=== PATIENT | female | born 1985 | race Caucasian/White ===

== ENCOUNTER 2019-05-24 05:05 | Inpatient (IN) | payer OTHER, SELFPAY ==
[2019-05-24] VITALS (111 sets, daily range): BP systolic 89–136; BP diastolic 48–93; PULSE 60–245; RESP 16; TEMP 36.6–37.6; O2SAT 86–100; BMI 29.2
[2019-05-24] MEDS: LANOLIN (LANSINOH) 7.5 GM CREAM 1 APPLIC TOPICAL (00:10)
--- NOTE | 2019-05-24 05:31 | LDADM ---
This patient, Meg Andrade, was admitted to Labor/Delivery/Recovery 102 on 05/24/19 at 05:05. Plans for labor, pain management and were discussed with patient. Patient/family oriented to hospital policies and general routines including ID bracelet, bed and alarms, visiting hours, pain management, procedures, bathroom and other care routines, personal items, smoking policy, room service/diet and guest tray routines, infant security routines, and visiting hours. Patient/Family are encouraged to report perceived risks to care and to ask questions if they do not understand what they are told or what they should do. See OBIX for further documentation.
[2019-05-24 05:37] LABS: Basophils Absolute Auto 0.1 K/mm3 (0.0-0.1); Basophils Percent Auto 0.6 % (0.2-1.2); Eosinophils Absolute Auto 0.1 K/mm3 (0-0.3); Eosinophils Percent Auto 0.8 % (0-4.4); Hematocrit 36.3 % (37.0-47.0); Immature Granulocyte Absolute 0.23 K/mm3 (0.00-0.031); Immature Granulocyte Percent A 2.4 % (0-0.5); Mean Corpuscular HGB Conc 33.1 g/dl (32-36); Mean Corpuscular Hemoglobin 28.6 pg (26-34); Mean Corpuscular Volume 86.4 fl (80-100); Mean Platelet Volume 10.1 fl (7.4-10.4); Monocytes Absolute Auto 0.5 K/mm3 (0.1-0.6); Monocytes Percent Auto 5.7 % (2.6-8.5); Neutrophils Absolute Auto 6.6 K/mm3 (1.3-6.7); Neutrophils Percent Auto 69.5 % (45.5-73.1); Platelet Count Result 260 k/mm3 (150-375); White Blood Count 9.5 K/mm3 (4.5-10.0)
[2019-05-24] MEDS: LACTATED RINGERS 1,000 ML 125 ML IV CONT ×3 (05:49→14:50)
[2019-05-24 06:55] LABS: Rapid Plasma Reagin Non-Reactive (NonReactive)
--- NOTE | 2019-05-24 07:34 | P.HP_ITS ---
Obstetrics - Admit Note Admission Note: record reviewed. No pertinent additions to the history and/or any subsequent changes in the physical findings that are not consistent with the expected course of the were found. Additions to the history and/or subsequent changes in the physical findings follow. at 39 weeks for induction of labor. GBS negative. Cervix FT/50/- 3/posterior, unable to perform AROM at this time. Continue pitocin
[2019-05-24] MEDS: ONDANSETRON INJ 4 MG/2 ML VIAL IV PUSH (12:06)
--- NOTE | 2019-05-24 12:41 | PM.OBPNLAB ---
Pain Control Date/time seen: 05/24/19 12:41 Pain control: tolerating well Pelvic Exam Dilation (cm): 3 Effacement (%): 50 station: -2 Amniotic membrane status: Ruptured Comments: AROM performed with copious clear fluid Contractions Monitor mode: External Contraction pattern: Regular Status status: Category l Assessment and Plan Assessment: induction ongoing Plan: continuous present management
--- NOTE | 2019-05-24 18:05 | PM.OBPRVD ---
OB - Delivery Note Procedure Delivery date: 05/24/19 Procedure: events: Labor Induction Intrapartal events: None Induction method: AROM and per pitocin protocol Delivery monitor: external FHT Route of delivery: Laceration description: Periurethral - 1st Degree (bilateral) Delivery repair: vicryl (3-0, one stitch on each side) Specimen: No Estimated blood loss (mL): 225 Anesthesia type: Epidural Disposition: floor Baby Date of : 05/24/19 Time of : 17:51 Weeks of gestation at delivery: 39 gender: Male Weight (pounds): 7 Weight (ounces): 10 presentation: vertex position: Left Occiput Anterior Placenta delivery description: Spontaneous cord vessel description: 3 Vessels score one minute: 8 score five minutes: 9
[2019-05-24] MEDS: DOCUSATE SODIUM 100 MG CAPSULE PO (21:30)
[2019-05-24] MEDS: WITCH HAZEL 40 PADS 1 PAD TOPICAL (21:30)
[2019-05-24] MEDS: BENZOCAINE 20% AER SPR (*SP) 56 GM CAN 1 SPRAY TOPICAL (21:30)
--- NOTE | 2019-05-24 21:40 | OBPPTRN ---
Patient transferred to post room #284 via wheelchair. Support person present. Oriented to unit, room, information board, rooming in, admission packet and security measures. Patient verbalizes understanding. with patient.
[2019-05-25] MEDS: IBUPROFEN 600 MG TABLET PO ×4 (00:10→23:18)
[2019-05-25] MEDS: ACETAMINOPHEN 325 MG TABLET 650 MG PO ×2 (04:48→11:50)
[2019-05-25 05:22] LABS: Hematocrit 32.7 % (37.0-47.0); Hemoglobin 10.6 g/dL (12.0-15.0)
--- NOTE | 2019-05-25 07:42 | P.PNOB_ITS ---
OB - PN: Subj Subjective Date/time seen: 05/25/19 07:42 OB - PN: Obj Data Labs CBC & Chem 7: 05/25/19 04:44 Labs: Laboratory Results - last 24 hr 05/25/19 04:44 Hgb 10.6 L Hct 32.7 L OB - PN A/P Plan day: 1 Plan: routine care Time Spent With Patient Time: Total time spent is greater than 50% in coordination of care (as azalia ortiz) at patient's floor/unit and/or counseling patient: Review of Systems Review of Systems: All systems reviewed & are unremarkable except as noted in HPI and below Constitutional: Constitutional: Reports as per HPI Cardiovascular: Cardiovascular: Reports as per HPI Exam Const: General: comfortable Resp: Effort & Inspection: normal respiratory effort Psych: Appearance: grossly normal Affect: normal affect Attitude: cooperative Judgement: Good judgement present (Psych)
[2019-05-25 08:00] VITALS: BP 103/67; PULSE 74; RESP 18; TEMP 37.4; O2SAT 99
--- NOTE | 2019-05-25 08:00 | WPDANLDPN2 ---
Anes-Prog Note L&D Date/Time: 05/25/19 08:00 Comfortable throughout: labor and delivery Neuraxial method: epidural Epidural/Spinal procedure site: clean & non-tender Neuro status: Neuro function grossly intact. Cardiovascular status: normal Respiratory status: normal Airway patency: baseline Mental status: baseline Post-Op hydration status: normal Vital Signs: Last Vital Signs Temp 36.6 C 05/24/19 21:40 Pulse 89 05/24/19 21:40 Resp 16 05/24/19 21:40 BP 119/70 05/24/19 21:40 Pulse Ox 100 05/24/19 17:37 I/O: Intake & Output 05/24/19 05/25/19 05/25/19 23:59 07:59 15:59 Output Total 325 Balance -325 Post-procedural complaints: none Patient feedback: Patient satisfied with anesthetic care.
[2019-05-25] MEDS: DOCUSATE SODIUM 100 MG CAPSULE PO ×2 (08:53→16:13)
[2019-05-25] MEDS: MULTIVIT/MIN/PREN/FOL AC/IRON TABLET 1 TAB PO (08:53)
[2019-05-25] MEDS: TETANUS,DIPHTHERIA,AC PERTUSSIS ADULT 0.5 ML (ADACEL) IM (08:54)
--- NOTE | 2019-05-25 11:30 | PC.NURSE ---
Consulted with patient, Mother reports this is third child to breastfeed. Mother states is easily awoken and eager to feed. Mother denies difficulties or discomfort with feeding. Reviewed infant feeding cues, frequencies, duration of feedings, feeding elimination flow sheet, and signs of adequate intake. Reviewed positioning/alignment, holding breast, signs of a correct latch, effective nursing and suck swallow ratio. Mother reports was able to maintain latch without discomfort to mother. Nipple care reviewed. Instructed mother to call out for RN assistance if she is unable to latch infant for feeding or she has discomfort with nursing. Instructed feeding should be initiated three hours from start of last feeding or if feeding cues are noted before. Mother voiced understanding of information shared. Mother is feeding as required and waking to feed if needed. Infant is currently meeting outcomes for weight, output, jaundice and feeding frequencies. Mother states she feels confident to continue effective at home. Reviewed transition to breast milk, signs of adequate intake, and engorgement/relief. Instructed to call ICP if intake/output less than required. Reviewed regular medications mother is taking. Information provided per Tamiko. Reviewed community resources on the [facility] website and in the Mom/Baby guide. Information on outpatient services provided. Mother has no further questions at this time.
[2019-05-25] MEDS: LANOLIN (LANSINOH) 7.5 GM CREAM 1 APPLIC TOPICAL (16:13)
[2019-05-25 20:00] VITALS: BP 106/67; PULSE 83; RESP 16; TEMP 37
--- NOTE | 2019-05-26 00:14 | PC.NURSE ---
Patient was given the opportunity to view the discharge video Mother & Baby Care, The First Two Weeks and to ask questions. Patient declined viewing the video and has been given the mother/baby guide for home reference. Pt has 2 other children and declined to watch video.
[2019-05-26] MEDS: ACETAMINOPHEN 325 MG TABLET 650 MG PO (04:46)
[2019-05-26] MEDS: WITCH HAZEL 40 PADS 1 PAD TOPICAL ×2 (04:47→08:28)
[2019-05-26 08:00] VITALS: BP 106/68; PULSE 68; RESP 18; TEMP 36.6
[2019-05-26] MEDS: BENZOCAINE 20% AER SPR (*SP) 56 GM CAN 1 SPRAY TOPICAL (08:28)
[2019-05-26] MEDS: IBUPROFEN 600 MG TABLET PO (08:29)
[2019-05-26] MEDS: DOCUSATE SODIUM 100 MG CAPSULE PO (08:29)
[2019-05-26] MEDS: LANOLIN (LANSINOH) 7.5 GM CREAM 1 APPLIC TOPICAL (08:29)
[2019-05-26] MEDS: MULTIVIT/MIN/PREN/FOL AC/IRON TABLET 1 TAB PO (08:29)
--- NOTE | 2019-05-26 09:54 | PM.OBPNVD ---
OB - PN: Subj Subjective Date/time seen: 05/26/19 09:54 OB - PN: Obj Data Labs CBC & Chem 7: 05/25/19 04:44 OB - PN A/P Plan day: 2 Plan: discharge home Time Spent With Patient Time: Total time spent is greater than 50% in coordination of care (as documented) at patient's floor/unit and/or counseling patient: Review of Systems Review of Systems: All systems reviewed & are unremarkable except as noted in HPI and below Constitutional: Constitutional: Reports as per HPI Cardiovascular: Cardiovascular: Reports as per HPI Exam Const: General: comfortable Resp: Effort & Inspection: normal respiratory effort Psych: Appearance: grossly normal Affect: normal affect Attitude: cooperative Judgement: Good judgement present (Psych)
--- NOTE | 2019-05-26 09:55 | PM.OBDSVD ---
OB - DS: Summary OB Procedures : None OB Procedures Intrapartum: Spontaneous Vag Delivery OB Procedures: : None Time Spent with Patient Time attestation: Total time spent providing and/or coordinating discharge services: Exam Const: General: comfortable Resp: Effort & Inspection: normal respiratory effort Psych: Appearance: grossly normal Affect: normal affect Attitude: cooperative Thought content: Yes Normal thought content present Judgement: Good judgement present (Psych) Discharge Plan Discharge Attending physician on discharge: Gonzalo Christian Discharging Clinician: Joan Quiñones Patient Disposition: Home, Self-Care Activity: pelvic rest Diet: regular Patient Instructions: Antibiotic Form Stand Alone Forms: General Discharge Information Follow-up/Referrals: Yaritza Rowe MD [Physician] - 4 Weeks Discharge Medications: New ibuprofen 600 mg Tablet 600 mg PO Q6H PRN (Reason: Cramping) Qty: 30 RF: 0 Continued PNV [id number] fumarate-FA [] 28 mg iron- 800 mcg Tablet 1 tablet PO DAILY RF: 0 Discontinued dbnqzzachi-wkvzpxaoxehfp-bjug 50-325-40 mg tablet 1 tablet Q6-8H RF: 0 Date of admission: 05/24/19 05:05 Primary Care Provider: PHYSICIAN,BEATER AND PULPER FEEDER Admitting Provider: Yaritza Rowe Attending physician on admission: Yaritza Rowe
--- NOTE | 2019-05-26 10:15 | PC.NURSE ---
Self care and infant care discharge instructions given including follow up visit date and time. Mother verbalized understanding. No questions or concerns verbalized. Very pleasant and cooperative. Family at side.
[2019-05-28 10:18] VITALS: PULSE 78; RESP 18; TEMP 36.8
== END 2019-05-26 11:30 | disposition home or self-care (01) | DRG 560 ==
LOC: ANHLDR 05:09 → ANHOB2 21:52
PROVIDERS: Admitting Provider Obstetrics & Gynecology; Visit Provider Obstetrics & Gynecology
DX: O71.82 Other specified trauma to perineum and vulva (principal); O70.0 First degree perineal laceration during delivery; Z3A.39 39 weeks gestation of pregnancy; Z37.0 Single live birth; Z23 Encounter for immunization
CPT/HCPCS: 36415; 85014; 85018; 85025; 86592; 86850; 86900; 86901; 90471; 90686; 90715; A9270; G0008; J2405; J2590; J2795; J3010; J7120

== ENCOUNTER 2020-02-04 15:46 | Emergency (ER) | payer OTHER, SELFPAY ==
--- NOTE | 2020-02-04 15:52 | ED.EAR ---
HPI - Ear Problem General Chief complaint: Ear Stated complaint: left ear pain Time Seen by Provider: 02/04/20 15:52 Source: patient and RN notes reviewed History of Present Illness HPI Narrative: Patient is a 34-year-old female who presents the urgent care with complaints of severe pain behind the left ear. Patient states it started approximately 2 nights ago and she has tried Tylenol and ibuprofen without any relief. Patient states the only thing that helps the pain is using a cold water bottle to the area or an ice pack behind the ear. Patient denies of any inner ear pain. Denies of any drainage from the ear. Denies of any known fever or other upper respiratory symptoms. Denies of any recent trauma to the head or ear. Denies of any recent ear infection or changes in hearing. Related Data Allergies Allergy/AdvReac Type Severity Reaction Status Date / Time Sulfa (Sulfonamide Allergy Unknown Swelling Verified 02/04/20 16:01 Antibiotics) Review of Systems Review of Systems: Narrative: CONSTITUTIONAL: Denies fever, chills, or sweats. EYES: Denies visual changes, redness, or discharge. ENT: Reports of severe pain behind the left ear CARDIOVASCULAR: Denies chest pain, palpitations, or edema. RESPIRATORY: Denies cough or dyspnea. GASTROINTESTINAL: Denies abdominal pain, nausea, vomiting, or diarrhea. GENITOURINARY: Denies dysuria or hematuria. SKIN: Denies rash or itching. MUSCULOSKELETAL: Denies back pain, joint pain, or myalgia. NEUROLOGIC: Denies headache, numbness, or weakness. All other systems reviewed are negative, except as documented in HPI. [facility] Past Medical History Medical History (Updated 02/04/20 @ 16:13 by JEN Snow) Depression Hx: UTI (urinary tract infection) Surgical History Surgical History No history of previous surgery Family History Family History Grandparent Arthritis Lung cancer Grandparent Diabetes mellitus Social History Social History Smoking status: Former smoker Smoking end date: 03/14/17 Substance use: never Gender identity (if verbalized by the patient): Female Spiritual care concerns: No Comments At the time of my signature, I reviewed and agree with the nursing past medical, surgical, social, and family history. There is no relevant family history pertinent to the patient complaint. Exam Narrative: Exam Narrative: GENERAL: This is a well-nourished, well-developed patient, in no apparent distress. HEAD: normocephalic, atraumatic. EYES: PERRL. Sclera clear/white. Vision is grossly intact. EARS: External ears normal, auditory canals clear and without drainage, TMs normal without perforation. Hearing grossly intact. Notable redness and mild edema behind the left ear without any notable trauma or injury NOSE: External nose normal with no obvious nasal discharge, nares without redness, no rhinorrhea. THROAT: Mucous membranes moist, posterior pharynx clear. Moderate postnasal drainage NECK: Neck supple, non-tender without lymphadenopathy, masses or thyromegaly. SKIN: warm, intact with no suspicious lesions or rash, good texture and turgor. NEURO: awake, alert, and oriented to person, place and time. There were no obvious focal neurologic abnormalities. EXTREMITIES: No clubbing, cyanosis, or edema. Course Vital Signs Vital signs: Vital Signs Temperature 97.4 F L 02/04/20 15:55 Pulse Rate 61 02/04/20 15:55 Respiratory Rate 20 02/04/20 15:55 Blood Pressure 115/66 02/04/20 15:55 Pulse Oximetry 100 02/04/20 15:55 Temperature 97.4 F L 02/04/20 15:55 Pulse Rate 61 02/04/20 15:55 Respiratory Rate 20 02/04/20 15:55 Blood Pressure 115/66 02/04/20 15:55 Pulse Oximetry 100 02/04/20 15:55 Reviewed Medical Decision Making MDM Narrative Medical decision making
[2020-02-04 15:55] VITALS: BP 115/66; PULSE 61; RESP 20; TEMP 36.3; O2SAT 100
== END 2020-02-04 16:20 | disposition home or self-care (01) ==
PROVIDERS: Emergency Provider Nurse Practitioner Family
DX: H92.02 Otalgia, left ear (principal); Z87.891 Personal history of nicotine dependence
CPT/HCPCS: 99213; G0463

== ENCOUNTER 2020-06-24 09:46 | Outpatient (CLI) | payer OTHER, SELFPAY | END 2020-06-24 09:47 | disposition home or self-care (01) | LOC: ANHCOVIDVC 09:46 | PROVIDERS: PCP Obstetrics & Gynecology | DX: Z23 Encounter for immunization (principal) | CPT/HCPCS: 0001A; 91300 ==

== ENCOUNTER 2020-07-15 09:45 | Outpatient (CLI) | payer OTHER, SELFPAY | END 2020-07-15 09:46 | LOC: ANHCOVIDVC 09:45 | PROVIDERS: PCP Obstetrics & Gynecology | DX: Z23 Encounter for immunization (principal) | CPT/HCPCS: 0002A; 91300 ==

== ENCOUNTER 2023-04-13 12:19 | Outpatient (CLI) | payer OTHER, SELFPAY ==
--- NOTE | ~2023-04-13 | MMUS_ITS ---
EXAMINATION: MM diagnostic karla BI w toni, US breast BI complete HISTORY: Nipple discharge. Milky color. Patient still lactating. TECHNIQUE: Additional 3-D tomosynthesis images of the breasts were performed and synthetic 2-D images were generated. CAD analysis was submitted and interpreted. High resolution bilateral complete breas t ultrasound was performed. COMPARISON: No prior studies for comparison. BREAST PARENCHYMAL COMPOSITION: Not dense: There are scattered areas of fibroglandular density. FINDINGS: MAMMOGRAPHIC FINDINGS: There are no suspicious masses, calcifications or architectural distortion in either breast to sugges t malignancy. ULTRASOUND: Complete bilateral US of all 4 quadrants of the breasts and retroareolar region was reviewed. Normal heterogeneous echotexture without focal solid or cystic mass. IMPRESSION: 1. No evidence for malignancy in either breast. 2. Routine yearly screening mammogram and regular clinical breast examination are recommended. BI-RADS Category 1: Negative Reviewed, dictated and finalized at location A. ER IMPRESSION: 1. No evidence for malignancy in either breast. 2. Routine yearly screening mammogram and regular clinical breast examination a re recommended. BI-RADS Category 1: Negative
== END 2023-04-13 12:20 | disposition home or self-care (01) ==
PROVIDERS: PCP Obstetrics & Gynecology; Visit Provider Nurse Practitioner
DX: N64.52 Nipple discharge (principal)
CPT/HCPCS: 76641; 77062; 77066; G0279

== ENCOUNTER 2024-02-14 12:23 | Emergency (ER) | payer OTHER, SELFPAY ==
[2024-02-14 12:35] VITALS: BP 112/64; PULSE 85; RESP 18; TEMP 36.5; O2SAT 100
--- NOTE | 2024-02-14 12:44 | ED.URI ---
HPI - URI/Sore Throat General Chief Complaint: Upper Respiratory Infection Stated Complaint: sore throat Time Seen by Provider: 02/14/24 12:57 Source: patient, RN notes reviewed and old records reviewed Mode of arrival: ambulatory Limitations: no limitations History of Present Illness HPI Narrative: 38-year-old female presents to the [facility] with complaints of a sore throat since 01:30 this morning. No treatment prior to arrival Patient states she has had chills yesterday, took TheraFlu and naproxen. Onset (ago): hour(s) (11) Related Data Home Medications Medication Instructions Recorded Confirmed No Home Medications 02/14/24 02/14/24 Allergies Allergy/AdvReac Type Severity Reaction Status Date / Time Sulfa (Sulfonamide AdvReac Intermediate Swelling Verified 02/14/24 12:43 Antibiotics) of the Eye Review of Systems Review of Systems: All systems reviewed & are unremarkable except as noted in HPI and below Constitutional: Constitutional: Reports no additional constitutional complaints ENT: Reports as per HPI and Reports sore throat Cardiovascular: Cardiovascular: Reports no additional cardiovascular complaints, Denies chest pain and Denies dyspnea Respiratory: Respiratory: Reports no additional respiratory complaints, Denies chest congestion, Denies cough and Denies dyspnea Gastrointestinal: Gastrointestinal: Reports no additional gastrointestinal complaints, Denies abdominal pain, Denies nausea and Denies vomiting Musculoskeletal: Musculoskeletal: Reports no additional musculoskeletal complaints Integumentary/Breasts: Skin/Breast: Reports system reviewed and no additional complaints, except as docu PMFSH Past Medical History Medical History Depression Hx: UTI (urinary tract infection) Surgical History Surgical History No history of previous surgery Family History Family History Grandparent Arthritis Lung cancer Grandparent Diabetes mellitus Sibling Depression Social History Social History Smoking status: Former smoker Smoking end date: 03/14/17 Alcohol intake: never Substance use: never Substance use type: does not use Do You Feel Safe in your Home?: Yes Lack of Transportation: No Lack of Food: Never True Current Housing: I Have Housing Concerned About Future Housing: No Difficulty Paying Gas/Electric Bills: No Difficulty Paying for Meds: No Currently Unemployed: No Education: Associate Degree Difficulty w/ Childcare or Family Care: No Gender identity (if verbalized by the patient): Female Spiritual care concerns: No Comments At the time of my signature, I reviewed and agree with the nursing past medical, surgical, social, and family history. There is no relevant family history pertinent to the patient complaint. Exam Const: General: cooperative, healthy appearing, comfortable, no acute distress, well developed, alert and well nourished Nutritional Appearance: well nourished Orientation/consciousness: patient oriented x3 Limitations: no limitations HENMT: Head: normal to inspection Ears: hearing grossly normal bilaterally, external ears normal, TM's normal bilaterally, EAC's normal, mastoids normal and no periauricular adenopathy Face/Nose/Sinus: Normal external nose present, normal facial exam and face symmetric Face and sinus: normal facial exam and face symmetric Mouth: Yes Normal oral and palatal mucosa present, Yes lip normal and Yes tongue normal Throat: posterior oropharynx normal, tonsils normal, uvula midline and no uvular edema Eyes: General: appearance normal, both eyes and all related structures Alignment and Position: alignment normal Periorbital: periorbital findings normal Neck: Neck: normal visual inspection, full ROM, no lymphadenopathy and no meningeal signs Chest: Chest palpation & inspection: normal inspection of the chest Resp: Effort & Inspection: normal respiratory effort and able to speak in complete sentences Auscultation: clear to auscultation bilaterally, no crackles, no rales, no rhonchi and no wheezes Cardio: Rate: regular rate Skin: General skin exam: normal color and no rashes or lesions noted Lesions: no lesions Rashes: no rashes Wounds: no wounds Neuro: General: patient oriented x3, gait normal, tone normal, moves all extremities and no meningeal signs Cognition (Neuro): normal cognition Speech: normal speech Gait exam (Neuro): Normal gait present Extrem: General: normal to inspection, full ROM, capillary refill normal and normal gait Psych: Appearance: grossly normal and well kempt Mental Status: mental status grossly normal Speech and movement: Normal speech and movement present and Clear speech present Affect: normal affect Attitude: cooperative Course Course Level of Care: Express Care Visit Vital Signs Vital signs: Vital Signs Temperature 97.7 F 02/14/24 12:35 Pulse Rate 85 02/14/24 12:35 Respiratory Rate 18 02/14/24 12:35 Blood Pressure 112/64 02/14/24 12:35 Pulse Oximetry 100 02/14/24 12:35 Oxygen Delivery Room Air 02/14/24 12:35 Temperature 97.7 F 02/14/24 12:35 Pulse Rate 85 02/14/24 12:35 Respiratory Rate 18 02/14/24 12:35 Blood Pressure 112/64 02/14/24 12:35 Pulse Oximetry 100 02/14/24 12:35 Oxygen Delivery Room Air 02/14/24 12:35 Reviewed MDM - URI/Sore Throat MDM Narrative Medical decision making narrative: Patient sitting comfortably in exam. Nontoxic, vitals stable. Patient in no acute distress. Patient presents with sore throat, strep test negative, will culture Patient appropriate for outpatient treatment of viral pharyngitis with close follow-up Discharge instructions reviewed with patient, as well as provided in writing per nursing staff. The instructions also include specific and strict return/GO TO THE ER as well as f/u information. All questions have been answered, and the patient deny any further questions with discharge and discharge plan. Some parts of this dictation were generated by voice recognition software and may contain typographical and/or grammatical inaccuracies. Differential Diagnosis Differential diagnosis: Likely upper respiratory infection, viral infection and pharyngitis Lab Data Labs: Lab Results 02/14/24 Range/Units 13:00 POC Grp A Strep Screen Negative (Negative) Reviewed Critical Care Time Critical Care Time Critical Care Time: No Discharge Plan Discharge Clinical Impression: Pharyngitis Patient Disposition: Home, Self-Care Condition: Stable Instructions: Antibiotic Form, Pharyngitis (ED) Additional Instructions: Take Motrin alternating with Tylenol as needed for pain Salt water gargles, Chloraseptic spray or Cepacol lozenges can help with the discomfort Your rapid strep swab was negative today at [facility]. A throat culture will be sent to the laboratory for further testing. If the test is positive, you will receive a phone call within 48 hours and an appropriate antibiotic will be initiated at that time. -Follow up with primary care provider in 7-10 days if condition is not improving - For new or worsening symptoms go directly to the nearest ER Patient Language: Filipino Prescriptions: No Action No Home Medications Follow-up/Referrals: Johan,Carlos Alberto Will MD [Primary Care Provider] - 2 Weeks (express care follow up ) Stand Alone Forms: Work/School Release IP Time of Disposition: 13:05
[2024-02-14 13:03] LABS: EDSTREPNEGPOS1 Negative (Negative)
== END 2024-02-14 13:06 | disposition home or self-care (01) ==
PROVIDERS: Emergency Provider Nurse Practitioner; PCP Internal Medicine Gastroenterology
DX: J02.9 Acute pharyngitis, unspecified (principal); Z87.891 Personal history of nicotine dependence
CPT/HCPCS: 87081; 87880; 99213; G0463

== ENCOUNTER 2024-06-06 08:02 | Emergency (ER) | payer OTHER, SELFPAY ==
--- OUTSIDE RECORDS SUMMARY | 2024-06-06 08:09 | XMS_ITS | Data Portability ---
Author Organization [facility] [place] Address [address] [place] [address] Assessment Encounter Date Assessment Date Assessment LastModified by Organization Details LastModified Time 03/15/2023 03/15/2023 Annual gynecological exam performed. Patient will come back in a year unless there are new symptoms. [email or web address] Not available 03/15/2023 11:54:57 04/03/2024 04/03/2024 Annual gynecological exam performed. Patient will come back in a year unless there are new symptoms. [email or web address] Not available 04/03/2024 13:58:43 Plan of Treatment Reminders Order Date Submit Date Provider Last Modified By Organization Details Last Modified Time Details Appointments None recorded. Lab culture, urine 2024 025 [facility] (Lab), [address], [place], [address], 5 00:25:16 prolactin, serum 2023 024 [facility] (Lab), [address], [place], [address], 4 05:41:26 CMP, serum or plasma 2023 024 [facility] (Lab), [address] [place], [address], 4 05:41:25 lipid panel, blood 2023 024 [facility] (Lab), [address] [place], [address], 4 05:41:25 HbA1c (hemoglobin A1c), blood 2023 024 [facility] (Lab), [address] , [place], [address], 4 05:41:27 CBC w/ auto diff 2023 024 [facility] (Lab), [address], [place], [address], 4 05:41:25 TSH, serum or plasma 2023 024 [facility] (Lab), [address], [place], [address], 4 05:41:26 vitamin D, 25-hydroxy, total, serum 2023 024 [facility] (Lab), [address] , [place], [address], 4 05:41:27 Referral None recorded. Procedures None recorded. Surgeries None recorded. Imaging MAMMO, screening, digital, bilateral [address] [facility], [address], [place], [address], 5 11:24:07 MAMMO, diagnostic, digital, bilateral 2023 024 [facility], [address], [place], [address], 4 15:43:52 Medication Orders Macrobid 100 mg capsule 2024 025 [facility] #[id number], [address], [place], [place], [id number], 5 16:13:45 fluconazole 150 mg tablet 2024 025 [facility] #[id number], [address] [facility] [address] [place] [address], [id number], 5 16:14:01 Macrobid 100 mg capsule 2024 025 [facility] #47539, [address] [facility] [address] [place] [address], [id number], 5 16:08:13 fluconazole 150 mg tablet 2024 025 [facility] #52873, [address] [place] [address], [id number], 5 16:10:15 fluoxetine 10 mg capsule 2023 025 [facility] #47847, [address] [facility] [address] [place] [address], [id number], 5 14:04:11 Lexapro 10 mg tablet 2023 024 [facility] #64621, [address] [place] [address], [id number], 4 14:13:13 Patient TargetsNo targets recorded. Patient InstructionsNo instructions recorded. Reason for Referral None Reported. Results Created Date Observation Date Name Description Value Unit Range Abnormal Flag Note LastModifiedBy Organization Detail LastModifiedTime 03/15/19 24 03/15/2023 IMAGE GUIDE D PAP AND HPV REGAR DLESS image guided Pap, HPV regardless of Pap result SEE RESULT S BELOW CASE REPOR T: Cytol ogy Gynec ologi nuria Repor t Case: [id number] Autho екатерина g Provi lance: Ashley Cerna NP Colle cted: 03/15 1501 Order ing Locat ion: [place] [facility] Recei diana: 03/15 2343 First Scree n: Noora ni, Moham ed, CT Rescr een: Susannah Valdez ret, CT Speci men: Scree tata Pap - Image d, Cervi x STATE MENT OF ADEQU ACY: Satis facto ry for evalu ation Trans forma tion zone compo nent absen t; cherelle shearer obscu ring blood prese nt. The absen ce of an endoc ervic al compo nent was confi rmed by an addit gulshan velez. FINAL DIAGN OSIS: Negat mario for Intra epith elial Lesio n or Josh sanchez (NIL) . Elect donavon shearer shira d by Angella Santillan for McBri deSusannah ret, CT on 024 at 11:42 AM ----- ----- ----- ----- ----- ----- ----- ----- ----- ----- ----- ----- ----- ----- ----- ----- ----- ---- HPV RESUL TS: HPV mRNA E6/E7 : No HPV mRNA Detec angel NOTE: This high risk HPV mRNA assay detec ts fourt een high- risk HPV types (16, 18, 31, 33, 35, 39, 45, 51, 52, 56, 58, 59, 66, 68) witho ut diffe renti ation . COMME NT: This speci men was revie wed by a Cytot echno logis t and/o r Patho logis t (as indic ated in this repor t) after evalu ation using the Thinp rep Imagi ng Syste m. CLINI NURIA INFOR MATIO N: Menst rual Statu s: LMP (if appli cable ): Clini nuria Histo ry/Pr eviou s Pap: Type of Neopl kendall (if appli cable ): Signi fican t Clini nuria Findi ngs: Other Histo ry: Hormo eduardo (if appli cable ): PAP EDUCA RONNELL L NOTE: The Pap Test is a scree tata test with an inher ent false negat mario rate. Liqui d-bas ed sampl ing may decre ase, but will not elimi nikki, false negat mario resul ts. A negat mario resul t does not precl ude the prese nce and/o r devel opmen t of disea se, since the prese nce of abnor mal cells in the sampl e depen ds on the locat ion of the lesio n and sampl ing techn ique. Tameka nued regul ar scree tata is the best metho d of cance r preve ntion . If repor angel cytol ogic findi ng do not corre late with physi nuria and/o r histo rical findi ngs, furth er inves tigat ion is recom jyoti d, as clini nilsa warra nted. Not Available [facility] (Lab) [address], [place], [address], 03/17/2023 12:46:23 03/23/19 24 03/23/2023 CBC W/DIF F WBC 6.1 10'3/ uL 3.6-10 .2 Not Available [facility] (Lab) [address], [place], [address], 03/24/2023 05:41:24 03/23/19 24 03/23/2023 CBC W/DIF F RBC 4.72 10'6/ uL (based on docume nted legal sex) 4.10-5 .30 Not Available [facility] (Lab) [address], [place], [address], 03/24/2023 05:41:24 03/23/19 24 03/23/2023 CBC W/DIF F HGB 13.0 g/dL (based on docume nted legal sex) 11.9-1 5.8 Not Available [facility] (Lab) [address], [place], [address], 03/24/2023 05:41:24 03/23/19 24 03/23/2023 CBC W/DIF F HCT 40.7 % (based on docume nted legal sex) 37.4-4 8.3 Not Available [facility] (Lab) [address], [place], [address], 03/24/2023 05:41:24 03/23/19 24 03/23/2023 CBC W/DIF F MCV 86.2 fL 82.0-9 9.0 Not Available [facility] (Lab) [address], [place], [address], 03/24/2023 05:41:24 03/23/19 24 03/23/2023 CBC W/DIF F MCH 27.5 pg 27.0-3 3.0 Not Available [facility] (Lab) [address], [place], [address], 03/24/2023 05:41:24 03/23/19 24 03/23/2023 CBC W/DIF F MCHC 31.9 g/dL 32.0-3 6.0 low Not Available [facility] (Lab) [address], [place], [address], 03/24/2023 05:41:24 03/23/19 24 03/23/2023 CBC W/DIF F RDW 14.0 % 11.0-1 5.0 Not Available [facility] (Lab) [address], [place], [address], 03/24/2023 05:41:24 03/23/19 24 03/23/2023 CBC W/DIF F plt 339 10'3/ uL 150-45 0 Not Available [facility] (Lab) [address], [place], [address], 03/24/2023 05:41:24 03/23/19 24 03/23/2023 CBC W/DIF F MPV 9.8 fL 9.8-12 .7 Not Available [facility] (Lab) [address], [place], [address], 03/24/2023 05:41:24 03/23/19 24 03/23/2023 CBC W/DIF F NRBC's 0.0 % 0 Not Available [facility] (Lab) [address], [place], [address], 03/24/2023 05:41:24 03/23/19 24 03/23/2023 CBC W/DIF F absolute NRBCs 0.0 10'3/ uL 0 Not Available [facility] (Lab) [address] [facility], [place], [address], 03/24/2023 05:41:24 03/23/19 24 03/23/2023 CBC W/DIF F neutrophils 65.2 % 37.0-7 2.0 Not Available [facility] (Lab) [address] [facility], [place], [address], 03/24/2023 05:41:24 03/23/19 24 03/23/2023 CBC W/DIF F lymphocytes 26.1 % 16.0-4 8.0 Not Available [facility] (Lab) [address] [facility], [place], [address], 03/24/2023 05:41:24 03/23/19 24 03/23/2023 CBC W/DIF F monocytes 6.1 % 4.0-14 .0 Not Available [facility] (Lab) [address] [facility], [place], [address], 03/24/2023 05:41:24 03/23/19 24 03/23/2023 CBC W/DIF F eosinophils 1.6 % 0.0-9. 0 Not Available [facility] (Lab) [address], [place], [address], 03/24/2023 05:41:24 03/23/19 24 03/23/2023 CBC W/DIF F basophils 0.7 % 0.0-2. 0 Not Available [facility] (Lab) [address], [place], [address], 03/24/2023 05:41:24 03/23/19 24 03/23/2023 CBC W/DIF F immature granulocytes 0.3 % no define d refere nce range Not Available [facility] (Lab) [address], [place], [address], 03/24/2023 05:41:24 03/23/19 24 03/23/2023 CBC W/DIF F absolute neutrophils 4.0 10'3/ uL 1.1-6. 0 Not Available [facility] (Lab) [address], [place], [address], 03/24/2023 05:41:24 03/23/19 24 03/23/2023 CBC W/DIF F absolute lymphocytes 1.6 10'3/ uL 0.7-3. 4 Not Available [facility] (Lab) [address], [place], [address], 03/24/2023 05:41:24 03/23/19 24 03/23/2023 CBC W/DIF F absolute monocytes 0.4 10'3/ uL 0.3-1. 0 Not Available [facility] (Lab) [address], [place], [address], 03/24/2023 05:41:24 03/23/19 24 03/23/2023 CBC W/DIF F absolute eosinophils 0.1 10'3/ uL 0.0-0. 6 Not Available [facility] (Lab) [address] [place], [address], 03/24/2023 05:41:24 03/23/19 24 03/23/2023 CBC W/DIF F absolute basophils 0.0 10'3/ uL 0.0-0. 1 Not Available [facility] (Lab) [address] [place], [address], 03/24/2023 05:41:24 03/23/19 24 03/23/2023 CBC W/DIF F absolute immature granulocytes 0.0 10'3/ uL 0.00-0 .10 2023 3:42 AM: P indic ates parti al resul ts on a panel have been relea sed. Addit ional resul ts will follo w. 2023 3:42 AM: This resul t has been final verif ied. No addit ional or stewart ed resul ts are expec angel. Not Available [facility] (Lab) [address] [place], [address], 03/24/2023 05:41:24 03/23/19 24 03/23/2023 LIPID PANEL ,AMA (LDL- CALC) total cholesterol 190 mg/dL 0-199 Not Available [facility] (Lab) [address] [place], [address], 03/24/2023 05:41:25 03/23/19 24 03/23/2023 LIPID PANEL ,AMA (LDL- CALC) triglyceride s 61 mg/dL 0.00-1 50.00 NCEP Refer ence Value s for Trigl yceri freddy: Juanita l: <150 mg/dL Borde rline High: 150 - 199 mg/dL High: 200 - 499 mg/dL Very High: >/= 500 mg/dL Not Available [facility] (Lab) [address] [place], [address], 03/24/2023 05:41:25 03/23/19 24 03/23/2023 LIPID PANEL ,AMA (LDL- CALC) HDL cholesterol 74 mg/dL >40 Not Available [facility] (Lab) [address] [place], [address], 03/24/2023 05:41:25 03/23/1903/23/2023 LIPID PANEL ,AMA (LDL- CALC) LDL cholesterol 101 mg/dL 0-99 high Cutof f value s recom jyoti d by the Natio nal Rebekah stero l Educa tion Progr am: IVAN ABLE: Rebekah stero l <200 mg/dL LDL <100 mg/dL BORDE RLINE : Rebekah stero l 200-2 39 mg/dL LDL 101-1 59 mg/dL HIGHE R RISK: Rebekah stero l >240 mg/dL LDL >160 mg/dL , HDL <40 mg/dL Not Available [facility] (Lab) [address] [place], [address], 03/24/2023 05:41:25 03/23/19 24 03/23/2023 LIPID PANEL ,AMA (LDL- CALC) non-HDL cholesterol 116 mg/dL no refere nce range A reaso nable goal for non-H DL rebekah stero l is one that is 30 mg/dL highe r than the LDL rebekah stero l goal. Not Available [facility] (Lab) [address], [place], [address], 03/24/2023 05:41:25 03/23/19 24 03/23/2023 LIPID PANEL ,AMA (LDL- CALC) chol/HDL ratio 2.6 . 0.0-5. 0 On July 06, 2022, [facility] labor atori krishna stewart ed the equat ion for calcu latin g estim ated low-d ensit y lipop rotei n-cho leste rol (LDL- C) from the Fried anna equat ion to the Denae sue/Hop kins equat ion. This new equat ion is only valid for lipid panel s with trigl yceri freddy < 400 mg/dL . Ignacioi es have demon matthewt ed that this new equat ion will impro ve the accur acy of LDL-C , espec ially in scena chanel when LDL-C dony ntrat ions are relat ively low (< 100 mg/dL ), trigl yceri freddy are eleva angel, or patie nt is non-f astin g. Refer ences : - Bienvenido Hart, Jm Ryan , [facility] [place] good, Kody Sandy, Kody washington h, Scott cartagena , and Olvin Wagner . 2013. Comp ariso n of a Novel Metho d vs the Fried anna Equat ion for Estim ating Low-D ensit y Lipop rotei n Rebekah stero l Level s from the Stand itz Lipid Profi le. VONDA: The Journ al of the Ameri can Medic al Assoc iatio n 310 19): 2060- 68. - Mayito tang V, Janee J, Mary ar A, Dereje M, Amber e R, Brandi tang E, Nickolas cartagena RS, Bernard SR, Denae n SS. Fast ing Versu s Nonfa sting and Low-D ensit y Lipop rotei n Rebekah stero l Accur acy. Circu kalin n. 2017Mar 15;137 (1):1 0-19. Not Available [facility] (Lab) [address], [place], [address], 03/24/2023 05:41:25 03/23/19 24 03/23/2023 CMP(C OMPRE HENSI VE METAB OLIC PANEL ) sodium 138 mmol/ L 133-14 6 Not Available [facility] (Lab) [address] [place], [address], 03/24/2023 05:41:25 03/23/19 24 03/23/2023 CMP(C OMPRE HENSI VE METAB OLIC PANEL ) potassium 4.3 mmol/ L 3.5-5. 1 Not Available [facility] (Lab) [address], [place], [address], 03/24/2023 05:41:25 03/23/19 24 03/23/2023 CMP(C OMPRE HENSI VE METAB OLIC PANEL ) chloride 103 mmol/ L 98-107 Not Available [facility] (Lab) [address] [place], [address], 03/24/2023 05:41:25 03/23/19 24 03/23/2023 CMP(C OMPRE HENSI VE METAB OLIC PANEL ) carbon dioxide 28 mmol/ L 21-31 Not Available [facility] (Lab) [address] [place], [address], 03/24/2023 05:41:25 03/23/19 24 03/23/2023 CMP(C OMPRE HENSI VE METAB OLIC PANEL ) anion gap 7 mmol/ L 4-13 Not Available [facility] (Lab) [address] [place], [address], 03/24/2023 05:41:25 03/23/19 24 03/23/2023 CMP(C OMPRE HENSI VE METAB OLIC PANEL ) blood urea nitrogen 9 mg/dL 7-25 Not Available [facility] (Lab) [address], [place], [address], 03/24/2023 05:41:25 03/23/19 24 03/23/2023 CMP(C OMPRE HENSI VE METAB OLIC PANEL ) creatinine 0.91 mg/dL 0.60-1 .30 Not Available [facility] (Lab) [address], [place], [address], 03/24/2023 05:41:25 03/23/19 24 03/23/2023 CMP(C OMPRE HENSI VE METAB OLIC PANEL ) egfrcr (CKD-epi 2020) 82 mL/mi n/1.7 3_m2 >=60 Not Available [facility] (Lab) [address], [place], [address], 03/24/2023 05:41:25 03/23/19 24 03/23/2023 CMP(C OMPRE HENSI VE METAB OLIC PANEL ) calcium 9.7 mg/dL 8.3-10 .5 Not Available [facility] (Lab) [address], [place], [address], 03/24/2023 05:41:25 03/23/19 24 03/23/2023 CMP(C OMPRE HENSI VE METAB OLIC PANEL ) glucose 85 mg/dL 70-100 Not Available [facility] (Lab) [address], [place], [address], 03/24/2023 05:41:25 03/23/19 24 03/23/2023 CMP(C OMPRE HENSI VE METAB OLIC PANEL ) protein, total 6.7 g/dL 6.4-8. 3 Not Available [facility] (Lab) [address], [place], [address], 03/24/2023 05:41:25 03/23/19 24 03/23/2023 CMP(C OMPRE HENSI VE METAB OLIC PANEL ) albumin 4.3 g/dL 3.5-5. 0 Not Available [facility] (Lab) [address], [place], [address], 03/24/2023 05:41:25 03/23/19 24 03/23/2023 CMP(C OMPRE HENSI VE METAB OLIC PANEL ) ALT 29 units /L 9-43 Not Available [facility] (Lab) [address], [place], [address], 03/24/2023 05:41:25 03/23/19 24 03/23/2023 CMP(C OMPRE HENSI VE METAB OLIC PANEL ) alkaline phosphatase 85 units /L 34-104 Not Available [facility] (Lab) [address], [place], [address], 03/24/2023 05:41:25 03/23/19 24 03/23/2023 CMP(C OMPRE HENSI VE METAB OLIC PANEL ) AST 21 units /L 13-39 Not Available [facility] (Lab) [address], [place], [address], 03/24/2023 05:41:25 03/23/19 24 03/23/2023 CMP(C OMPRE HENSI VE METAB OLIC PANEL ) bilirubin, total 0.5 mg/dL 0.2-1. 2 Not Available [facility] (Lab) [address], [place], [address], 03/24/2023 05:41:25 03/23/19 24 03/23/2023 TSH, REFLE X FREE T4 TSH 2.58 uIU/m L 0.30-5 .33 Not Available [facility] (Lab) [address] [place], [address], 03/24/2023 05:41:26 03/23/19 24 03/23/2023 PROLA CTIN prolactin, total 7.90 NG/mL 4.79-2 3.30 This assay was perfo rmed using [employer] ratio n reage nts and test kits. Value s obtai lissy with other assay metho ds or kits canno t be used inter stewart eably . Not Available [facility] (Lab) [address], [place], [address], 03/24/2023 05:41:26 03/23/19 24 03/23/2023 VITAM IN D, 25-OH (TOTA L D2/D3 ) vitamin D, 25-hydroxy, total 24.9 NG/mL 30.0-1 00.0 low Sugge stive of Defic iency : <20 ng/mL Sugge stive of Insuf ficie ncy: 20-29 ng/mL Sugge stive of Suffi cienc y: 30-10 0 ng/mL Sugge stive of Toxic ity: >150 ng/mL Not Available [facility] (Lab) [address], [place], [address], 03/24/2023 05:41:27 03/23/19 24 03/23/2023 HEMOG LOBIN A1C hemoglobin A1C 5.3 % 0-5.6 The Ameri can Diabe mohini Assoc iatio n recom mends that a prima ry goal of thera py leslieul d be a HBA1C of < 7% and that physi cians shoul d reeva luate the treat ment regim en in patie nts with HBA1C value s consi stent ly > 8%. <5.7% Juanita l 5.7 - 6.4% Incre ased risk for diabe mohini >=6.5 % Diagn ostic of diabe mohini <7.0% Goal of thera py >8.0% Actio n sugge sted Not Available [facility] (Lab) [address], [place], [address], 03/24/2023 05:41:27 04/23/19 25 04/23/2024 CULTU RE: URINE result report SEE RESULT S BELOW abnormal Test: Cultu re: Urine Speci men Sourc e: Urine - Clean Catch Speci men Type: Urine Speci men Date: 2024 1604 Resul t Date: 2024 0724 Resul t Statu s: Final resul t Breezy mal: Yes Lila rose mary Lab: [facility] [address] [facility] [address] Tel: [phone] CULTU RE ----- ----- ----- --- 75,00 0-100 ,000 CFU/m l Esche robert a coli (Abno rmal) SUSCE PTIBI LITY ----- ----- ----- --- Esche robert a coli METHO D EILEEN ----- ----- ----- ----- ----- ---- ----- ----- ----- ----- ----- AMPIC ILLIN <=8 ug/mL Susce ptibl e AMPIC ILLIN /SULB ACTAM <=4 ug/mL Susce ptibl e AZTRE ONAM <=4 ug/mL Susce ptibl e CEFAZ ORLANDO <=2 ug/mL Susce ptibl e CEFEP CROW <=2 ug/mL Susce ptibl e CEFTA ZIDIM E <=1 ug/mL Susce ptibl e CEFTR IAXON E <=1 ug/mL Susce ptibl e CIPRO FLOXA JOHANNA <=0.2 5 ug/mL Susce ptibl e GENTA MICIN <=2 ug/mL Susce ptibl e LEVOF LOXAC IN <=0.5 ug/mL Susce ptibl e MEROP ENEM <=1 ug/mL Susce ptibl e NITRO FURAN TOIN <=32 ug/mL Susce ptibl e PIPER ACILL IN/TA ZOBAC DORANTES <=8 ug/mL Susce ptibl e TOBRA MYCIN <=2 ug/mL Susce ptibl e TRIME THOPR IM/QUIGLEY LFAME THOXA ZOLE <=0.5 ug/mL Susce ptibl e Not Available [facility] (Lab) [address], [place], [address], 04/27/2024 01:44:04 05/30/1905/29/2024 CULTU RE: URINE result report SEE RESULT S BELOW abnormal Test: Cultu re: Urine Speci men Sourc e: Urine - Clean Catch Speci men Type: Urine Speci men Date: 2024 1529 Resul t Date: 2024 2321 Resul t Statu s: Final resul t Abnor mal: Yes Resul rose mary Lab: [facility] [address] [facility] [address] Tel: CULTU RE ----- ----- ----- --- >100, 000 CFU/m l Esche robert a coli (Abno rmal) SUSCE PTIBI LITY ----- ----- ----- --- Esche robert a coli METHO D EILEEN ----- ----- ----- ----- ----- ---- ----- ----- ----- ----- ----- AMPIC ILLIN <=8 ug/mL Susce ptibl e AMPIC ILLIN /SULB ACTAM <=4 ug/mL Susce ptibl e AZTRE ONAM <=4 ug/mL Susce ptibl e CEFAZ ORLANDO <=2 ug/mL Susce ptibl e CEFEP CROW <=2 ug/mL Susce ptibl e CEFTA ZIDIM E <=1 ug/mL Susce ptibl e CEFTR IAXON E <=1 ug/mL Susce ptibl e CIPRO FLOXA JOHANNA <=0.2 5 ug/mL Susce ptibl e GENTA MICIN <=2 ug/mL Susce ptibl e LEVOF LOXAC IN <=0.5 ug/mL Susce ptibl e MEROP ENEM <=1 ug/mL Susce ptibl e NITRO FURAN TOIN <=32 ug/mL Susce ptibl e PIPER ACILL IN/TA ZOBAC DORANTES <=8 ug/mL Susce ptibl e TOBRA MYCIN <=2 ug/mL Susce ptibl e TRIME THOPR IM/QUIGLEY LFAME THOXA ZOLE <=0.5 ug/mL Susce ptibl e Not Available [facility] (Lab) [address], [place], [address], 06/01/2024 00:25:16 04/13/19 24 04/13/2023 MAMMO , diagn ostic , digit al, bilat eral No observ ation record ed. [facility] [address], [place], [address], 04/14/2023 11:17:18 Result Notes None recorded. Problems Name Problem SNOMED Code Status Onset Date Resolution Date Notes Provider Name and Address Organization Details Recorded Time Antenata l screenin g for malforma tion Completed 201801/29/2021 Encounte r for antenata l screenin g for malforma tions;Re corded Elsewher e: No Locat ion: [facility] S ource: EHR Pickling Solution Maker colleen: N Sisi ce ID: [email or web address] lable Time: 01:00:00 PM Rita Ashby [facility] 17:25:08 Pregnanc y test negative [id number] Completed 201201/29/2021 Pregnanc y examinat ion or test, negative result;R ecorded Elsewher e: No Locat ion: [facility] S ource: EHR Pickling Solution Maker colleen: N Rafyti ce ID: [email or web address] lable Time: 08:00:00 AM Rita Ashby [facility] 17:25:59 Acute vaginiti s [id number] Completed 201701/29/2021 Acute vaginiti s;Record ed Elsewher e: No Locat ion: [facility] S ource: EHR Pickling Solution Maker colleen: N Rafyti ce ID: [email or web address] lable Time: 02:00:00 PM Rita Ashby [facility] 1 17:24:59 Amenorrh ea [id number] Completed 201701/29/2021 Amenorrh ea, unspecif ied;Cliff rded Elsewher e: No [facility]at [facility] S ource: EHR Pickling Solution Maker colleen: N Practi ce ID: [id number] [email or web address] lable Time: 02:45:00 PM Rita Ashby [facility] 1 17:25:04 Insertio n of intraute rine contrace ptive device Completed 201201/29/2021 INSERTIO N OF IUD;Cliff rded Elsewher e: No [facility]at ion[facility] S ource: EHR Pickling Solution Maker colleen: N Rafyti ce ID: [email or web address] lable Time: 08:00:00 AM Rita Ashby [facility] 1 17:25:37 Finding of viabilit y of pregnanc y [id number] Completed 201801/29/2021 Pregnanc y w inconclu sive viabilit y, unsp;Rec orded Elsewher e: No Locat ion[facility] S ource: EHR Pickling Solution Maker colleen: N Rafyti ce ID: [email or web address] lable Time: 03:45:00 PM Rita Ashby [facility] 1 17:25:24 Finding of contents of cervix [id number] Completed 201801/29/2021 Weeks of gestatio n of pregnanc y not specifie d;Record ed Elsewher e: No Locat ion: [facility] S ource: EHR Pickling Solution Maker colleen: N Practi ce ID: [email or web address] Herminio lable Time: 05:00:00 PM Rita Ashby [facility] 1 17:25:20 Secondar y amenorrh ea [id number] Completed 201801/29/2021 Secondar y amenorrh ea;Recor ded Elsewher e: No Locat ion: [facility] S ource: EHR Pickling Solution Maker colleen: N Practi ce ID: 0001 Herminio lable Time: 08:30:00 AM Rita Ashby [facility] 1 17:26:07 Screenin g for malignan t neoplasm of cervix Completed 201201/29/2021 Screenin g for malignan t neoplasm s of the cervix;R ecorded Elsewher e: No Locat ion: [facility] Rafyti ce ID: 0001 Herminio lable Time: 10:30:00 AM Rita Ashby [facility] 1 17:26:06 Vaginola bial hernia Completed 201701/29/2021 Other specifie d noninfla mmatory disorder s of vagina;R ecorded Elsewher e: No Locat ion: [facility] S ource: EHR Pickling Solution Maker colleen: N Rafyti ce ID: 0001 Herminio lable Time: 02:00:00 PM Rita Ashby [facility] 1 17:26:20 Syphilis test finding [id number] Completed 201801/29/2021 Encntr screen for infectio ns w sexl mode of transmis s;Record ed Elsewher e: No Locat ion: [facility] S ource: EHR Pickling Solution Maker colleen: N Rafyti ce ID: 0001 Herminio lable Time: 08:30:00 AM Rita Ashby [facility] 1 17:26:15 Hirsutis m [id number] Completed 201501/29/2021 Hirsutis m;Record ed Elsewher e: No Locat ion: [facility] S ource: EHR [employer] Solution Maker colleen: N Practi ce ID: 0001 Herminio lable Time: 09:45:00 AM Rita Ashby [facility] 1 17:25:34 Vaginiti s and vulvovag initis Completed 201401/29/2021 Vaginiti s and vulvovag initis, unspecif ied;Cliff rded Elsewher e: No Locat ion: [facility] S ource: EHR Pickling Solution Maker colleen: N Practi ce ID: 0001 Herminio lable Time: 01:45:00 PM Rita Ashby [facility] 17:26:19 Normal pregnanc y in multigra anmol [id number] Completed 201901/29/2021 Encounte r for supervis ion of other normal pregnanc y, 3rd trimeste r;Record ed Elsewher e: No Locat ion: [facility] S ource: EHR [employer] Maker colleen: N Rafyti ce ID: 0001 Herminio lable Time: 09:30:00 AM Rita Ashby [facility] 1 17:25:51 Miscarri age without complica tion [id number] Completed 201701/29/2021 Incomple te spontane ous without complica tion;Rec orded Elsewher e: No Locat ion: [facility] S ource: EHR [employer] Maker colleen: N Rafyti ce ID: 0001 Herminio lable Time: 03:30:00 PM Rita Ashby [facility] 1 17:25:48 Dyspareu darío [id number] Completed 201501/29/2021 Dyspareu darío;Cliff rded Elsewher e: No Locat ion: [facility] S ource: EHR Pickling Solution Maker colleen: N Practi ce ID: 0001 Herminio lable Time: 05:15:00 PM Rita Ashby [facility] 17:25:16 Gestatio n less than 9 weeks [id number] Completed 201701/29/2021 Less than 8 weeks gestatio n of pregnanc y;Record ed Elsewher e: No Locat ion: [facility] S ource: EHR Pick[employer] Maker colleen: N Rafyti ce ID: 0001 Herminio lable Time: 04:00:00 PM Rita Ashby [facility] 1 17:25:25 Missed miscarri age [id number] Completed 201701/29/2021 Missed ;Recorde d Jackher e: No Locat ion: [facility] S ource: EHR Pickling Solution Maker colleen: N Rafyti ce ID: 0001 Herminio lable Time: 01:30:00 PM Rita Ashby [facility] 1 17:25:49 Dysfunct ional uterine bleeding Completed 201005/03/2012 Other disorder s of menstrua tion and other abnormal bleeding from female genital tract;Re corded Elsewher e: No Locat ion: [facility] S ource: EHR Pickling Solution Maker colleen: N Rafyti ce ID: 0001 Herminio lable Time: 09:30:00 AM Rita Ashby [facility] 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 shot and up can obtain at most pharmacies . If you have not had a TDap shot in the last 10 years you should obtain one as well. Discussed with patient & provided with informatio n regarding Gardisil vaccine to prevent the 4 strains for HPV that cause cervical cancer if under age 26. Encourage safe sexual practices, to use condoms and limit partners if not already in a monogamous relationsh ip. Do monthly self breast exams. Have mammogram yearly or every other year depending on family history. BRCA testing is now available for patients with strong genetic history of female cancer. If interested contact the office. Engage in daily exercise of low impact aerobic exercise 45-60 minutes 4-5 times weekly. Avoid tobacco and illicit drugs as well as using moderation with alcohol intake less than 1-2 8 oz beverages daily. This lifestyle behavior pattern will lead to less health conditions and longer life span. If BMI greater than 25 weight watchers or dietary consult advised. Patient received above instructio ns, and questions have been answered. If you have any questions please call or respond to this email. Patient was made aware of the patient portal and may obtain a paper copy of today's plan if desired. Pap/hpv sentSTD declinedGe netic screen discussed Generalize d anxiety disorder 80139274 F41.1 Trial of zoloft 50mg daily PO discussedO pts to pursue this trialR/B's reviewedOf lee ann for referral to counselor for herself.Wi ll consider moving forward. Counseled on r/b's, most common side effects of this therapy with instructio ns to stop medication with any significan t abnormal change in mood especially with thoughts of suicide/se lf-harm/or[place] rm to others. Understand ing verbalized . [id number] Zahra Garcia , [facility] [address] [address] 02/25/2021 10:39:47 02/25/2021 12:20:25 Generalized anxiety disorder 30748869 F41.1 Doing well and notable positive improvemen t with Zoloft 50mg approx 65% less anxiety.No significan t negative side effects other than a couple bouts of nausea when she took meds on empty stomach in the morning.Ne g Suicidal ideations/ thoughts of self harm.Trial of zoloft 100mg daily PO discussedR TO x 6wks virtual or in-person visit is fine. Time spent in visit is a total of 15 mins with at least 50% of visit consisting of counseling and review of plan of care.Addit ional precaution thalia measures were taken to minimize potential exposure to the Covid-19 virus during this patient s visit, including available hand credit verification clerk upon arrive, temperatur e check and being asked a series of screening questions. All staff wore face coverings during this encounter, as well as provided additional cleaning and sanitizing of all surfaces, including countertop s, pens, chairs, door handles, light switches, etc, prior to and following the patient s visit. Counseled on r/b's, most common side effects of this therapy with instructio ns to stop medication with any significan t abnormal change in mood especially with thoughts of suicide/se lf-harm/or[place] rm to others. Understand ing verbalized . [id number] TYRONE [facility] [address] [address] 04/07/2021 11:14:30 04/07/2021 15:28:23 Generalized anxiety disorder 13048912 F41.1 Today we agreed to continue Zoloft 100mg daily PO and she will f/u next at her yearly WWE which will be in January 2022.If any changes occur she knows to contact our office to discuss. Time spent in visit is a total of 15 mins with at least 50% of visit consisting of counseling and review of plan of care.Addit ional precaution thalia measures were taken to minimize potential exposure to the Covid-19 virus during this patient s visit, including available hand credit verification clerk upon arrive, temperatur e check and being asked a series of screening questions. All staff wore face coverings during this encounter, as well as provided additional cleaning and sanitizing of all surfaces, including countertop s, pens, chairs, door handles, light switches, etc, prior to and following the patient s visit. Counseled on r/b's, most common side effects of this therapy with instructio ns to stop medication with any significan t abnormal change in mood especially with thoughts of suicide/se lf-harm/orlando rm to others. Understand ing verbalized . [id number] TYRONE Arora [place] [address] [address] 03/15/2023 11:33:50 03/15/2023 14:14:15 Gynecologic examination 09287067 Z01.419 WWEBC - partner with vasectomyp ap updatedSTI testing declined Take Calcium with Vitamin D daily if not receiving in daily diet.It is strongly advised to have an annual flu shot and up can obtain at most pharmacies . If you have not had a TDap shot in the last 10 years you should obtain one as well. Discussed with patient & provided with informatio n regarding Gardisil vaccine to prevent the 4 strains for HPV that cause cervical cancer if under age 26.Encoura ge safe sexual practices, to use condoms and limit partners if not already in a monogamous relationsh ip.Do monthly self breast exams. Engage in daily exercise of low impact aerobic exercise 45-60 minutes 4-5 times weekly. Avoid tobacco and illicit drugs as well as using moderation with alcohol intake less than 1-2 8 oz beverages daily. This lifestyle behavior pattern will lead to less health conditions and longer life span. If BMI greater than 25 dietary consult advised.Rishabh jay received above instructio ns, and questions have been answered. If you have any questions please call or respond to this email.Christiana paulino was made aware of the patient portal and may obtain a paper copy of today's plan if desired. Discharge from nipple 54 321662 N64.52 prolactin level ordereddia gnostic mammogram with left breast u/s for further evaluation Weight gain 2539853 R63. 5 Discussed healthy diet/exerc isecompreh ensive fasting labs orderedenc ouraged f/u with PCP Anxiety 19021944 F41.9 management options reviewedop ts to trial lexapro, r/b/a reviewedrx sent, counseling encouraged med check in 4-6 weeksEPDS 5 Time spent in visit is a total of 60 mins with at least 50% of visit consisting of counseling and review of plan of care. Adult heal th examination [id number] Z00.00 [id number] TYRONE Arora [place] [address] [address] 04/03/2024 13:48:49 04/03/2024 15:43:26 Gynecologic examination 75667379 Z01.419 Z11.51 WWEPap - UTD/not indicated todaySTI screen - declinedMa mmogram - order givenColon cancer screening - n/aRoutine labs - PCP/UTDRTC in 1 yr or sooner if needed Suggested Calcium with Vitamin D daily. Patient advised to get an annual flu shot in the fall and she could obtain at local pharmacy. Also to obtain TDap vaccinatio n if you have not had one in the last 10 years. Recommend yearly mammograms . Encouraged monthly self breast exams. Encourage safe sexual practices, to use condoms and limit partners if not already in a monogamous relationsh ip. Engage in regular exercise. Avoid tobacco and illicit drugs. This lifestyle behavior pattern will lead to less health conditions and longer life span. If BMI greater than 25 dietary consult advised. All questions have been answered. Screening for malignant neoplasm of breast 442648830 Z12.39 Contracept ion care management 006357487 Z30.9 Discussed all BC optionsshe is considerin g POP/slyndR /b/a reviewed, if desired can send out rx [id number] TYRONE Arora [place] [address],[facility] [place] [address] 04/19/2023 13:50:34 04/19/2023 14:23:02 Anxiety 81448957 F41.9 Doing well on fluoxetine and desires to continue at current doserefill s sent. r/b/a reviewedpr ecautions discussed, questions answeredRT C for WWE in 1 yr or sooner if needed Time spent in visit is a total of 18 mins with at least 50% of visit consisting of counseling and review of plan of care. [id number] TYRONE Arora [place] [address] [address] 04/23/2024 15:41:33 04/23/2024 16:21:22 Urinary symptoms 305108369 R39.9 urine cx sentrx sent for macrobid - r/b/a reviewedrx for fluconazol e (pt requesting yeast treatment with antibiotic use)avoid bladder irritantsq uestions answered, precaution s discussed Time spent in visit is a total of 18 mins with at least 50% of visit consisting of counseling and review of plan of care. [id number] TYRONE Arora [place] [address] [address] 05/29/2024 15:53:22 05/29/2024 16:24:16 Urinary symptoms 717711253 R39.9 urine cx sent (UA not done d/t azo use)rx sent for macrobid - r/b/a reviewedrx for fluconazol e (pt requesting yeast treatment with antibiotic use)avoid bladder irritantsq uestions answered, precaution s discussed Time spent in visit is a total of 15 mins with at least 50% of visit consisting of counseling and review of plan of care. Health Concerns Section Related Observation LastModified by Organization Detai ls LastModified Time None Recorded Concern Status LastModified by Organization Details LastModified Time None Recorded Advance Directives Directive N: Payers Encounter Date Sequence Insurance Name Policy Number Policy [place] Covered Member ID [place] Member ID Guarantor Name 03/15/2023 1 [facility] ON OR AFTER 09/11/20 (MEDICAID REPLACEMENT - HMO) Meg Andrade [id number] Meg Andrade 04/19/2023 1 [facility] ON OR AFTER 09/11/20 (MEDICAID REPLACEMENT - HMO) Meg Andrade [id number] Meg Andrade 04/03/2024 1 [facility] ON OR AFTER 09/11/20 (MEDICAID REPLACEMENT - HMO) Meg Andrade [id number] Meg Andrade 04/23/2024 1 [facility] ON OR AFTER 09/11/20 (MEDICAID REPLACEMENT - HMO) Meg Andrade [id number] Meg Andrade 05/29/2024 1 [facility] ON OR AFTER 09/11/20 (MEDICAID REPLACEMENT - HMO) Meg Andrade [id number] Meg Andrade Notes Date Note Type Note Provider Name and Address Organization Details Recorded Time 03/15/2023 text/html Annual GYNReport ed bypatient.Menstrual cycle:Normal menses Urinary symptoms:No hematuria; No incontinence Vulva:No genital lesion Vagina:Normal vaginal discharge Breast:No breast pain; No breast lump; No nipple discharge Current Contraception:Satisf ied with current contraception; Partner had vasectomy Sexual complaints:No sexual complaints; No pain during intercourse; Normal libido Menopausal Symptoms:No menopausal symptoms; Normal vaginal lubrication Psychological symptoms:No depression; No anxiety; No PMDD Preventive measures:Encourage self breast examination; Encourage regular exercise; Encourage no tobacco use; Encourage regular mammograms starting age 40Notes:last pap 01/2021 - normalpartner with vasectomy for BChas gained 50lbs in the last yearincreased anxiety/depression symptoms. Feeling overwhelmed. Tried zoloft in the past but made headaches and weight gain worse. Denies ever thoughts of harming self or others.left nipple discharge x 4 yrs since of last child. Breastfed for 6 months, milky discharge persist. TYRONE Arora [address], [place], [address], [facility] 03/15/2023 14:46:53 04/19/2023 text/html 37yopresents for med checkstarted fluoxetine at [facility] for management of anxietyhas noticed improvement since starting, less anxious/overwhelmedn o neg SE, feeling well, would like to continue on this therapy TYRONE Arora [address], [place], [address], [facility] 04/19/2023 14:25:39 04/03/2024 text/html Annual GYNReport ed bypatient.Menstrual cycle:Normal menses Urinary symptoms:No hematuria; No incontinence Vulva:No genital lesion Vagina:Normal vaginal discharge Breast:No breast pain; No breast lump; No nipple discharge Sexual complaints:No sexual complaints; No pain during intercourse; Normal libido Menopausal Symptoms:No menopausal symptoms; Normal vaginal lubrication Psychological symptoms:No depression; No anxiety; No PMDD Preventive measures:Encourage self breast examination; Encourage regular exercise; Encourage no tobacco use; Encourage regular mammograms starting age 40Notes:38yo wwelast pap 03/2023 : nilm, HPV (-)not currently SA, recently TYRONE Arora [address], [place], [address], [facility] 04/03/2024 15:25:54 04/23/2024 text/html 38yopresents for dysuriasymptoms present x 3 dayshas been taking azo which has helped neg n/v/fneg flank pains TYRONE Arora [address], [place], [address], [facility] 04/23/2024 16:12:25 05/29/2024 text/html 38yopresents for dysuriasymptoms present x 3 dayshas been taking azo which has helped treated for cx (+) UTI 04/23, symptoms resolved with txneg n/v/fneg flank painshe is not SA TYRONE Arora [address], [place], [address], [facility] 05/29/2024 16:20:38 OBGyn Episode Ob Episode Information Episode Created Date Number of Fetuses Patient Bloodtype Patient rh Status Prepregnancy Weight lbs Domestic Partner Domestic Partner Phone Father Name Savings Counselor Status 12/19/19 20 1 CLOSED Fetus Data First Name Last Name Admitted to NICU Weight (g) Sex Living Outcome Pediatric Complications Fetus ID Race Codes Race Delivery Type , Spontane ous [id number] John Calculation Initial John Date Initial Exam Date Initial Exam Provider Initial Ultrasound Date Last Menstrual Period Date Ultra Sound Weeks Gestation 0 Eighteen To Twenty Week John Update Ultra Sound Date Fundal Height At Umbil Quickening Date Ultra Sound Latest Weeks Gestation Final John Confirmed By Final John Confirmed Date Final John Date Ultra Sound Latest Days Gestation 0 0 Menstrual History Last Menstrual Date Menses Monthly On Bcp Conception Prior Menses Frequency Hcg Plus Date Menarche Onset Age Delivery Information Delivery Date Delivery Type Labor Anesthesia Weeks Gestation Incision Type Labor Labor Length Hrs Delivered By Post Complications Tubal Sterilization Discharge Date Comments 8 Discharge Information Feeding Method Contraceptive Method Maternal HG B and HCT Levels Ob Episode Information Episode Created Date Number of Fetuses Patient Bloodtype Patient rh Status Prepregnancy Weight lbs Domestic Partner Domestic Partner Phone Father Name Savings Counselor Status 12/19/19 20 1 CLOSED Fetus Data First Name Last Name Admitted to NICU Weight (g) Sex Living Outcome Pediatric Complications Fetus ID Race Codes Race Delivery Type F Full Term [id number] Vaginal Delivery John Calculation Initial John Date Initial Exam Date Initial Exam Provider Initial Ultrasound Date Last Menstrual Period Date Ultra Sound Weeks Gestation 0 Eighteen To Twenty Week John Update Ultra Sound Date Fundal Height At Umbil Quickening Date Ultra Sound Latest Weeks Gestation Final John Confirmed By Final John Confirmed Date Final John Date Ultra Sound Latest Days Gestation 0 0 Menstrual History Last Menstrual Date Menses Monthly On Bcp Conception Prior Menses Frequency Hcg Plus Date Menarche Onset Age Delivery Information Delivery Date Delivery Type Labor Anesthesia Weeks Gestation Incision Type Labor Labor Length Hrs Delivered By Post Complications Tubal Sterilization Discharge Date Comments 0 39 Discharge Information Feeding Method Contraceptive Method Maternal HG B and HCT Levels Ob Episode Information Episode Created Date Number of Fetuses Patient Bloodtype Patient rh Status Prepregnancy Weight lbs Domestic Partner Domestic Partner Phone Father Name Savings Counselor Status 12/19/19 20 1 CLOSED Fetus Data First Name Last Name Admitted to NICU Weight (g) Sex Living Outcome Pediatric Complications Fetus ID Race Codes Race Delivery Type , Spontane ous 5155 John Calculation Initial John Date Initial Exam Date Initial Exam Provider Initial Ultrasound Date Last Menstrual Period Date Ultra Sound Weeks Gestation 0 Eighteen To Twenty Week John Update Ultra Sound Date Fundal Height At Umbil Quickening Date Ultra Sound Latest Weeks Gestation Final John Confirmed By Final John Confirmed Date Final John Date Ultra Sound Latest Days Gestation 0 0 Menstrual History Last Menstrual Date Menses Monthly On Bcp Conception Prior Menses Frequency Hcg Plus Date Menarche Onset Age Delivery Information Delivery Date Delivery Type Labor Anesthesia Weeks Gestation Incision Type Labor Labor Length Hrs Delivered By Post Complications Tubal Sterilization Discharge Date Comments 3 Discharge Information Feeding Method Contraceptive Method Maternal HG B and HCT Levels Ob Episode Information Episode Created Date Number of Fetuses Patient Bloodtype Patient rh Status Prepregnancy Weight lbs Domestic Partner Domestic Partner Phone Father Name Savings Counselor Status 12/19/19 20 1 CLOSED Fetus Data First Name Last Name Admitted to NICU Weight (g) Sex Living Outcome Pediatric Complications Fetus ID Race Codes Race Delivery Type [id number] F Full Term [id number] Vaginal Delivery John Calculation Initial John Date Initial Exam Date Initial Exam Provider Initial Ultrasound Date Last Menstrual Period Date Ultra Sound Weeks Gestation 0 Eighteen To Twenty Week John Update Ultra Sound Date Fundal Height At Umbil Quickening Date Ultra Sound Latest Weeks Gestation Final John Confirmed By Final John Confirmed Date Final John Date Ultra Sound Latest Days Gestation 0 0 Menstrual History Last Menstrual Date Menses Monthly On Bcp Conception Prior Menses Frequency Hcg Plus Date Menarche Onset Age Delivery Information Delivery Date Delivery Type Labor Anesthesia Weeks Gestation Incision Type Labor Labor Length Hrs Delivered By Post Complications Tubal Sterilization Discharge Date Comments 3 39 Discharge Information Feeding Method Contraceptive Method Maternal HG B and HCT Levels Ob Episode Information Episode Created Date Number of Fetuses Patient Bloodtype Patient rh Status Prepregnancy Weight lbs Domestic Partner Domestic Partner Phone Father Name Savings Counselor Status 12/19/19 20 1 CLOSED Fetus Data First Name Last Name Admitted to NICU Weight (g) Sex Living Outcome Pediatric Complications Fetus ID Race Codes Race Delivery Type , Spontane ous [id number] John Calculation Initial John Date Initial Exam Date Initial Exam Provider Initial Ultrasound Date Last Menstrual Period Date Ultra Sound Weeks Gestation 0 Eighteen To Twenty Week John Update Ultra Sound Date Fundal Height At Umbil Quickening Date Ultra Sound Latest Weeks Gestation Final John Confirmed By Final John Confirmed Date Final John Date Ultra Sound Latest Days Gestation 0 0 Menstrual History Last Menstrual Date Menses Monthly On Bcp Conception Prior Menses Frequency Hcg Plus Date Menarche Onset Age Delivery Information Delivery Date Delivery Type Labor Anesthesia Weeks Gestation Incision Type Labor Labor Length Hrs Delivered By Post Complications Tubal Sterilization Discharge Date Comments 8 Discharge Information Feeding Method Contraceptive Method Maternal HG B and HCT Levels Ob Episode Information Episode Created Date Number of Fetuses Patient Bloodtype Patient rh Status Prepregnancy Weight lbs Domestic Partner Domestic Partner Phone Father Name Savings Counselor Status 03/15/19 24 1 CLOSED Fetus Data First Name Last Name Admitted to NICU Weight (g) Sex Living Outcome Pediatric Complications Fetus ID Race Codes Race Delivery Type [phone] M Full Term [id number] Vaginal Delivery John Calculation Initial John Date Initial Exam Date Initial Exam Provider Initial Ultrasound Date Last Menstrual Period Date Ultra Sound Weeks Gestation 0 Eighteen To Twenty Week John Update Ultra Sound Date Fundal Height At Umbil Quickening Date Ultra Sound Latest Weeks Gestation Final John Confirmed By Final John Confirmed Date Final John Date Ultra Sound Latest Days Gestation 0 0 Menstrual History Last Menstrual Date Menses Monthly On Bcp Conception Prior Menses Frequency Hcg Plus Date Menarche Onset Age Delivery Information Delivery Date Delivery Type Labor Anesthesia Weeks Gestation Incision Type Labor Labor Length Hrs Delivered By Post Complications Tubal Sterilization Discharge Date Comments 0 39 Discharge Information Feeding Method Contraceptive Method Maternal HG B and HCT Levels
--- OUTSIDE RECORDS SUMMARY | 2024-06-06 08:09 | XMS_ITS | Clinical Summary ---
Author Organization [facility] Address [address] [place] [address] Care Team Providers Care Severity Of Illness Coordinator Name Role Phone Unavailable Primary Care Provider Unavailabl e Social History Tobacco Use Types Packs/Day Years Used Date Smoking Tobacco: Never Assessed Comments Unknown Sex and Gender Information Value Date Recorded Sex Assigned at Not on file Legal Sex Female 7:53 PM CDT Gender Identity Not on file Sexual Orientation Not on file Last Filed Vital Signs Vital Sign Reading Time Taken Comments Blood Pressure 108/70 11/10/2016 10:55 AM CDT Pulse 81 11/10/2016 10:55 AM CDT Temperature - - Respiratory Rate - - Oxygen Saturation - - Inhaled Oxygen Concentration - - Weight 71.7 kg (158 lb) 11/10/2016 10:55 AM CDT Height 174.6 cm (5' 8.75 ) 09/26/2014 9:52 AM CD T Body Mass Index 23.5 09/26/2014 9:52 AM CDT Plan of Treatment Health Maintenance Due Date Last Done Comments Cervical Cancer Screening Pa p Smear (Age 30 to 64) Every 3 Years 1983 Annual Physical 06/13/1986 Hepatitis C 06/13/2001 DTaP, Tdap and Td Vaccines ( 1 - Tdap) 06/13/2002 Hepatitis B Vaccines (1 of 3 - 19+ 3-dose series) 06/13/2002 Cervical Cancer Screening Pa p with HPV Testing (Age 30 to 64) Every 5 Years 06/13/2013 Cervical Cancer Screening with HPV 06/13/2013 Mammogram Screening 2023 COVID-19 Vaccine ( - 2023-2 5 season) 2023 Influenza Adult (#1) 2023 HPV Vaccines Aged Out No longer eligi ble based on patient's age to complete this topic Meningococcal B Vaccine Aged Out No l onger eligible based on patient's age to complete this topic Meningococcal Vaccine Aged Out No wilfredo miranda eligible based on patient's age to complete this topic Pneumococcal Vaccine: Pediat rics (0 to 5 Years) and At-Risk Patients (6 to 64 Years) Aged Out No longer eligible b ased on patient's age to complete this topic RSV Immunizations Under 20 Months Aged Out No longer eligible based on patient's age to complete this topic
[2024-06-06 08:13] VITALS: BP 98/71; PULSE 88; RESP 18; TEMP 36.8; O2SAT 100
--- NOTE | 2024-06-06 08:13 | ED.GENADULT ---
HPI - General Adult General Chief complaint: Allergic Reaction Stated complaint: allergic reaction Time Seen by Provider: 06/06/24 08:13 Source: patient Mode of arrival: ambulatory Limitations: no limitations History of Present Illness HPI narrative: 38-year-old female presents with complaint of hives, itching, swelling to ice that started yesterday. Patient just finished 7 days of Macrobid for urinary tract infection. No difficulty breathing or swallowing. Took Benadryl last night. Did not take Benadryl today because she states it makes her very tired. Needs to be awake to stay home with children. All systems reviewed and negative except as noted above. Related Data Allergies Allergy/AdvReac Type Severity Reaction Status Date / Time nitrofurantoin (From Allergy Intermediate Hives Verified 06/06/24 08:24 Macrobid) Sulfa (Sulfonamide AdvReac Intermediate Swelling Verified 06/06/24 08:24 Antibiotics) of the Eye Review of Systems Review of Systems: CONSTITUTIONAL: Denies fever, chills, or sweats. EYES: Denies visual changes, redness, or discharge. ENT: Denies rhinorrhea, congestion, sore throat, or otalgia. CARDIOVASCULAR: Denies chest pain, palpitations, or edema. RESPIRATORY: Denies cough or dyspnea. GASTROINTESTINAL: Denies abdominal pain, nausea, vomiting, or diarrhea. GENITOURINARY: Denies dysuria or hematuria. SKIN: Reports hives and itching. MUSCULOSKELETAL: Denies back pain, joint pain, or myalgia. NEUROLOGIC: Denies headache, numbness, or weakness. PSYCHIATRIC: Denies anxiety or depression. All other systems reviewed are negative, except as documented in HPI. [facility] Past Medical History Medical History Depression Hx: UTI (urinary tract infection) Surgical History Surgical History No history of previous surgery Family History Family History Grandparent Arthritis Lung cancer Grandparent Diabetes mellitus Sibling Depression Social History Social History Smoking status: Former smoker Smoking end date: 03/14/17 Alcohol intake: never Substance use: never Substance use type: does not use Do You Feel Safe in your Home?: Yes Lack of Transportation: No Lack of Food: Never True Current Housing: I Have Housing Concerned About Future Housing: No Difficulty Paying Gas/Electric Bills: No Difficulty Paying for Meds: No Currently Unemployed: No Education: Associate Degree Difficulty w/ Childcare or Family Care: No Gender identity (if verbalized by the patient): Female Spiritual care concerns: No Comments At time of signature, agree with nursing past medical, surgical, social and family history. There is no relevant family history pertinent to the presenting complaint. Exam Narrative: GENERAL: This is a well-nourished, well-developed patient, in no apparent distress. HEAD: normocephalic, atraumatic. EYES: PERRL. Sclera clear/white. Vision is grossly intact. EARS: External ears normal NOSE: External nose normal NECK: Neck supple, non-tender without lymphadenopathy, masses or thyromegaly. CARDIOVASCULAR: Regular rate and rhythm without murmurs, gallops, or rubs. RESPIRATORY: Clear to auscultation. Breath sounds equal bilaterally. No wheezes, rales, or rhonchi. SKIN: warm, Dry, intact with , good texture and turgor. erythematous hives to trunk, buttock, bilateral arms. Swelling and erythema to bilateral upper eyelids. NEURO: awake, alert, and oriented to person, place and time. There were no obvious focal neurologic abnormalities. EXTREMITIES: No joint tenderness, effusion, or edema noted. Course Course Level of Care: Express Care Visit Vital Signs Vital signs: Reviewed Medical Decision Making MDM Narrative Medical decision making narrative: patient given prednisone and Pepcid while at [facility] Care. Patient wanted to wait until she got home to take Benadryl due to making her drowsy. Recommend patient take Zyrtec twice a day instead As she needs to be awake and at home with her children. Patient is well-appearing, nontoxic. No respiratory distress. No signs of angioedema. Please be advised this is a medical document. It is intended for [id number] communication. It is written in medical language and may contain unfamiliar abbreviations or verbiage. Medical documents are intended to carry relevant information, facts as evident, and the clinical opinion of the practitioner at the time of the encounter. This report may have been done utilizing a voice recognition system. Attempts have been made to correct errors. However, there may be uncorrected grammatical, spelling, and recognition errors present. The file time of this note does not necessarily represent the time of service. Discharge Plan Discharge Clinical Impression: Acute urticaria Allergic reaction Qualifiers: Encounter type: initial encounter Qualified Code(s): T78.40XA - Allergy, unspecified, initial encounter Patient Disposition: Home, Self-Care Condition: Stable Instructions: Urticaria (ED), General Allergic Reaction (ED) Additional Instructions: take medications as prescribed. Start prednisone prescription tomorrow morning. Take Zyrtec twice a day. Follow-up with your primary care physician if symptoms are not improving. If you are having any difficulty breathing or swallowing or if you have swelling to your lips or tongue go to the ER. Patient Language: [place] Prescriptions: New prednisone 20 mg tablet See Rx Instructions .ROUTE .COMPLEX Qty: 11 0RF Rx Instructions: Take 2 tablets daily for 4 days then 1 tablet daily for 3 days. famotidine [Pepcid] 20 mg tablet 20 mg PO BID 7 Days Qty: 14 0RF Follow-up/Referrals: PHYSICIAN,MACHINE SPREADER [Primary Care Provider] - Time of Disposition: 08:25
[2024-06-06] MEDS: FAMOTIDINE 20 MG TABLET PO (08:21)
[2024-06-06] MEDS: predniSONE 20 MG TABLET 60 MG PO (08:21)
== END 2024-06-06 08:30 | disposition home or self-care (01) ==
PROVIDERS: Emergency Provider Nurse Practitioner Family; Referring Provider Emergency Medicine
DX: L50.9 Urticaria, unspecified (principal); T78.40XA Allergy, unspecified, initial encounter; Z87.891 Personal history of nicotine dependence
CPT/HCPCS: 99213; A9270; G0463; J7512